=== PATIENT | male | born 1940 | race Caucasian/White ===

== ENCOUNTER 2017-03-26 20:31 | Emergency (ER) | payer MEDICARE, OTHER ==
--- NOTE | 2017-03-26 21:54 | ED Physician Documentation ---
PD HPI MALE - Stated complaint Stated Complaint: MALE - Chief complaint Chief Complaint: General - History obtained from History obtained from: Patient, Family - History of Present Illness Timing - onset: How many hours ago (8) Timing - duration: Hours (8) Timing - details: Gradual onset Pain level max: 6 Pain level now: 6 Associated symptoms: Unable to urinate, Hematuria PD HPI MALE CONTRIB FACTORS: No: Sexually active, Not sexually active, Homosexual, Exposed to STD, Indwelling catheter Similar symptoms before: Diagnosis (BPH) - Additional information Additional information: Patient is a 76-year-old gentleman visiting from [place] who states that he was recently started on finasteride for urinary stream difficulties and had hematuria today with large clots and now has been unable to urinate for the past 8 hours. This has never happened to him before. Review of Systems Ten Systems: 10 systems reviewed and negative Constitutional: denies: Fever, Chills GI: denies: Nausea, Vomiting, Diarrhea Skin: denies: Rash Musculoskeletal: denies: Neck pain, Back pain Neurologic: denies: Headache PD PAST MEDICAL HISTORY - Past Medical History Past Medical History: Yes Cardiovascular: High cholesterol GI: GERD : Benign prostate hypertrophy Other Past Medical History: BBB - Past Surgical History Past Surgical History: Yes General: Cholecystectomy HEENT: Tonsil/Adenoidectomy - Present Medications Home Medications: Ambulatory Orders Medication Instructions Recorded Confirmed Aspirin 81 mg PO 03/26/17 Atorvastatin [Lipitor] 0 mg 03/26/17 Calcium Carbonate/Vitamin D3 1 each PO 03/26/17 [Calcium 500-Vit D3 200 Tablet] Famotidine [Pepcid AC] 10 mg PO 03/26/17 Finasteride 1 mg PO 03/26/17 Magnesium Citrate 03/26/17 - Allergies Allergies/Adverse Reactions: Allergies Allergy/AdvReac Type Severity Reaction Status Date / Time contrast Allergy Anaphylaxis Uncoded 03/26/17 20:36 - Social History Does the pt smoke?: No Smoking Status: Never smoker Does the pt drink ETOH?: Yes Does the pt have substance abuse?: No - Immunizations Immunizations are current?: Yes PD ED PE NORMAL - Vitals Vital signs reviewed: Yes - General General: Alert and oriented X 3, Well developed/nourished - HEENT HEENT: Moist mucous membranes - Neck Neck: Supple, no meningeal sign - Cardiac Cardiac: RRR, Strong equal pulses - Respiratory Respiratory: No respiratory distress, Clear bilaterally - Abdomen Abdomen: Soft, Non distended, Other - Derm Derm: Warm and dry - Neuro Neuro: Alert and oriented X 3 - Psych Psych: Normal mood, Normal affect Results - Vitals Vitals: Vital Signs - 24 hr 03/26/17 03/26/17 20:33 22:11 Temperature 36.6 C Heart Rate 90 87 Respiratory 16 18 Rate Blood Pressure 164/94 H 137/88 H O2 Saturation 97 100 Oxygen O2 Source Room air PD MEDICAL DECISION MAKING - ED course Complexity details: considered differential, d/w patient, d/w family, d/w java consultant ED course: Patient is a 76-year-old gentleman who presents to the emergency department with hematuria and inability to urinate. Bladder scan showed over 1000 mL's. A Fuchs catheter was attempted to be placed by the nurse without success. We then attempted a 16 Portuguese coud, 14 Portuguese coud and silicone catheter without success. The bedside ultrasound reveals the catheter appears to be embedded in the very enlarged prostate. Unable to pass Fuchs into the bladder. Layering blood seen on US in the bladder. Therefore we contacted urology, Dr. Tapia, at at 2140 who graciously accepts in transfer. I discussed the case with [id number] Dr. Brady, Emergency Department attending physician who also graciously accepts in transfer. Patient is transferred to [facility] for further care. This document was made in part using voice recognition software. While efforts are made to proofread this document, sound alike and grammatical errors may occur. Departure - Departure Disposition: 02 Transfer Acute Care Hosp Clinical Impression: Urinary retention, Prostate enlargement Hematuria Qualifiers: Hematuria type: gross Qualified Code(s): R31.0 - Gross hematuria Condition: Stable Comments: Go directly to the [facility] ED for evaluation. I spoke with Dr. Tapia from urology [facility] and Dr. Brady from the ED. Discharge Date/Time: 03/26/17 22:15
[2017-03-26 22:12] VITALS: BP 137/88
== END 2017-03-26 22:15 | disposition short-term general hospital (02) ==
LOC: ED 20:31
DX: R33.9 Retention of urine, unspecified (principal); N40.0 Benign prostatic hyperplasia without lower urinary tract symptoms; R31.0 Gross hematuria; E78.00 Pure hypercholesterolemia, unspecified; K21.9 Gastro-esophageal reflux disease without esophagitis; Z79.82 Long term (current) use of aspirin
CPT/HCPCS: 99283; 99285